=== PATIENT | male | born 1985 | race Two or more races ===

== ENCOUNTER 2019-05-27 23:08 | Emergency (ER) | payer SELFPAY ==
[~2019-05-27] VITALS: Ht 177.8 cm; Wt 86.2 kg
[2019-05-27 23:12] VITALS: BP 140/68
--- NOTE | 2019-05-27 23:18 | NUR ---
PT AMBULATED TO LOBBY WITH STEADY GAIT.
--- NOTE | 2019-05-27 23:34 | NUR ---
PT W/C TO XRAY
--- NOTE | 2019-05-27 23:40 | NUR ---
PT RETURNED FROM X RAY VIA W/C
[2019-05-28] MEDS: IBUPROFEN 800 MG TAB PO ONE (00:03)
--- NOTE | 2019-05-28 00:10 | NUR ---
PT FELL OFF BED TODAY AND LANDED ON RIGHT SHOULDER. PT DENIES PAIN. NO REDNESS OR SWELLING NOTED. SKIN WARM AND DRY TO TOUCH. NKA. NO MEDICAL HISTORY STATED. PT SITTING IN BED. BED IN LOWEST POSITION. BED RAIL UP X1.
[2019-05-28 00:25] VITALS: BP 140/68
--- NOTE | 2019-05-28 00:26 | NUR ---
Patient discharged with v/s stable. PT instructed to rest shoulder, not lift heavy items, place ice on shoulder. Written and verbal after care instructions given and explained. Patient alert, oriented and verbalized understanding of instructions. Ambulatory with steady gait. All questions addressed prior to discharge. ID band removed. Patient advised to follow up with PMD. Rx of MOTRIN 800MG given. Patient educated on indication of medication including possible reaction and side effects. Opportunity to ask questions provided and answered.
== END 2019-05-28 00:26 | disposition home or self-care (01) ==
LOC: MED 23:08
DX: S40.012A Contusion of left shoulder, initial encounter (principal); W01.0XXA Fall on same level from slipping, tripping and stumbling without subsequent striking against object, initial encounter; Y93.89 Activity, other specified; Y92.098 Other place in other non-institutional residence as the place of occurrence of the external cause; Y99.8 Other external cause status
CPT/HCPCS: 73030; 99283